=== PATIENT | female | born 1990 | race Caucasian/White ===

== ENCOUNTER 2018-04-13 13:03 | Emergency (ER) | payer OTHER ==
[2018-04-13 13:22] VITALS: BP 135/94
--- NOTE | 2018-04-13 13:25 | ED Physician Documentation ---
History of Present Illness - Stated complaint Stated Complaint: EMP NEEDLE STICK - Chief complaint Chief Complaint: Needlestick - History obtained from History obtained from: Patient - History of Present Illness Timing: Today Pain level max: 0 Pain level now: 0 - Additonal information Additional information: diabetic lancet to L palm. unknown if it had been used. 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 Patient may have history of hep C. No HIV history. lancet was on the counter. Review of Systems : denies: Now [facility] PAST MEDICAL HISTORY - Past Medical History Past Medical History: No - Present Medications Home Medications: Ambulatory Orders Medication Instructions Recorded Confirmed Fluticasone 220 Mcg [Flovent] 04/13/18 Montelukast [Singulair] 0 mg 04/13/18 - Allergies Allergies/Adverse Reactions: Allergies Allergy/AdvReac Type Severity Reaction Status Date / Time No Known Drug Allergies Allergy Verified 04/13/18 13:22 PD ED PE NORMAL - Vitals Vital signs reviewed: Yes - General General: Alert and oriented X 3 - Derm Derm: Warm and dry - Extremities Extremities: Other (L hand - small puncture to the palm, near 4th MCP joint. ) Results - Vitals Vitals: Vital Signs - 24 hr 04/13/18 13:16 Temperature 36.1 C L Heart Rate 90 Respiratory 16 Rate Blood Pressure 135/94 H O2 Saturation 99 Oxygen O2 Source Room air PD MEDICAL DECISION MAKING - ED course Complexity details: considered differential, d/w patient ED course: Patient is a 28-year-old female with a needle stick exposure today. Postexposure labs were drawn. It is a very low risk exposure, therefore she declines postexposure prophylaxis at this time and I think is reasonable. We will have her follow-up with employee [employer] for further care. L and I paperwork filled out patient counseled regarding signs and symptoms for which I believe and urgent re-evaluation would be necessary. Patient with good understanding of and agreement to plan and is comfortable going home at this time This document was made in part using voice recognition software. While efforts are made to proofread this document, sound alike and grammatical errors may occur. Departure - Departure Disposition: 01 Home, Self Care Clinical Impression: Needlestick injury accident Condition: Good Instructions: ED Body Fluid Exp HC Worker Follow-Up: VIVIANA HOYT MD [Primary Care Provider] - As Needed Comments: Follow-up with employee health as outlined in your packet
[2018-04-13 13:34] LABS: MEAN CORPUSCULAR HEMOGLOBIN 30.4 pg (27.0-31.0); MEAN CORPUSCULAR HGB CONC 34.5 g/dL (32.0-36.0); MEAN CORPUSCULAR VOLUME 88.1 fL (81.0-99.0); MEAN PLATELET VOLUME 7.5 fL (7.9-10.8); RED BLOOD COUNT 4.95 10^6/uL (4.20-5.40); RED CELL DISTRIBUTION WIDTH 13.1 % (12.0-15.0); WHITE BLOOD COUNT 9.3 x10^3/uL (4.8-10.8)
[2018-04-13 13:41] LABS: ALBUMIN 4.5 g/dL (3.2-5.5); ALBUMIN/GLOBULIN RATIO 1.3 (1.0-2.2); BILIRUBIN,TOTAL 0.9 mg/dL (0.2-1.0); CALCIUM 9.4 mg/dL (8.5-10.3); CREATININE 0.6 mg/dL (0.4-1.0); TOTAL PROTEIN 7.9 g/dL (6.7-8.2)
[2018-04-14 12:22] LABS: HEPATITIS C ANTIBODY NON-REACTIVE (NON-REACTIVE)
[2018-04-14 14:20] LABS: HIV AG/AB 4TH GEN NON-REACTIVE (NON-REACTIVE)
== END 2018-04-13 13:26 | disposition home or self-care (01) ==
LOC: ED 13:03
DX: S61.412A Laceration without foreign body of left hand, initial encounter (principal); W46.1XXA Contact with contaminated hypodermic needle, initial encounter; Y99.0 Civilian activity done for income or pay
CPT/HCPCS: 36415; 80053; 85027; 86317; 86803; 87389; 99282